=== PATIENT | male | born 1945 | race Caucasian/White ===

== ENCOUNTER 2019-12-15 12:49 | Emergency (ER) | payer MEDICARE ==
--- OUTSIDE RECORDS SUMMARY | 2019-12-15 13:41 | XMS REPORT | Summary of Care ---
:1945 Author Organization [facility] Address [address] [place] [address] Care Team Providers Name Role Phone Wood Connor MD Primary Care Provider Reason for Referral Pain Medicine (Routine) Status Reason Specialty Diagnoses / Referred By Referred To Procedures Contact Contact Open Pain Medicine Diagnoses Sacroiliac joint dysfunction of both sides Miguel Woodard, RO[employer] [address] [place] [address] Email: [email or web address] Scheduling Instructions Get Authorization for orders: Yes No Make Appointment for procedure: Yes No Reason for Visit Reason Comments Back Pain Encounter Details Date Type Department Care Team Description 11/26/2019 Office Visit [facility] Miguel Woodard Sacroiliac joint Pain Medicine at [facility] [employer] dysfunction of both and [facility] [address] sides (Primary Dx) [address] [facility] [id number] Allergies No Known Allergiesdocumented as of this encounter (statuses as of 11/26/2019) Medications Medication Sig Dispensed Refills Start Date End Date Status metformin 0 06/05/2014 Active (GLUCOPHAGE) 500 MG tablet aspirin EC 81 MG EC Take 81 mg 0 Active tablet by mouth daily. rosuvastatin TAKE ONE 1 07/18/2017 Active (CRESTOR) 5 MG TABLET BY tablet MOUTH EVERY EVENING lisinopril 0 11/18/2017 Active (PRINIVIL,ZESTRIL) 5 MG tablet cyclobenzaprine Take 1 30 tablet 2 09/18/2018 Active (FLEXERIL) 10 MG tablet by tablet mouth daily as needed for Muscle spasms Meloxicam 15 MG Oral Take 1 30 tablet 1 11/26/2019 Active Tablet (MOBIC) tablet by mouth daily meloxicam (MOBIC) 15 Take 15 mg 3 09/23/2018 Discontinued MG tablet by mouth 0 (Reorder) daily documented as of this encounter (statuses as of 11/26/2019) Active Problems Problem Noted Date Facet arthropathy, lumbosacral 10/18/2014 Lumbar radiculopathy 02/17/2013 Overview: Work related injury SI (sacroiliac) joint dysfunction 02/17/2013 Overview: Work related injury documented as of this encounter (statuses as of 11/26/2019) Resolved Problems Problem Noted Date Resolved Date Encounter for long-term (current) use of opioid 12/20/2014 05/30/2017 documented as of this encounter (statuses as of 11/26/2019) Social History Tobacco Use Types Packs/Day Years Used Date Never Smoker Smokeless Tobacco: Never Used Alcohol Use Drinks/Week oz/Week Comments No Sex Assigned at Date Recorded Not on file Job Start Date Occupation Industry Not on file Not on file Not on file Travel History Travel Start Travel End No recent travel history available. documented as of this encounter Last Filed Vital Signs Vital Sign Reading Time Taken Comments Blood Pressure 124/89 11/26/2019 8:04 AM EST Pulse 70 11/26/2019 8:04 AM EST Temperature - - Respiratory Rate - - Oxygen Saturation - - Inhaled Oxygen Concentration - - Weight 108.9 kg (240 lb) 11/26/2019 8:04 AM EST Height 170.2 cm (5' 7") 11/26/2019 8:04 AM EST Body Mass Index 37.59 11/26/2019 8:04 AM EST documented in this encounter Progress Notes Miguel Woodard NP - 11/26/2019 8:00 AM EST Subjective: Patient ID: Alberto Parkinson is a 74 y.o. male. The patient is a 74 year old male with chronic back pain due to SI joint dysfunction, lumbar radiculopathy, spinal stenosis with intermittent neurogenic claudication He comes for follow-up increase low back pain for past month. He underwent RFA of B/L SI joints on 05/2019 with 5 months of excellent relief. Back Pain This is a chronic problem. The current episode started more than 1 year ago. The problem occurs daily. The problem has been gradually worsening since onset. The pain is present in the sacro-iliac and lumbar spine. The quality of the pain is described as aching. The pain does not radiate. The pain is at a severity of 7/10. The pain is moderate. The pain is the same all the time. The symptoms are aggravated by sitting and standing. Pertinent negatives include no bladder incontinence, bowel incontinence, chest pain, fever, numbness, tingling or weakness. Risk factors include obesity. He has tried NSAIDs and muscle relaxant (rfa ) for the symptoms. The treatment provided moderate relief. Alberto has a past medical history of Diabetes mellitus, Hypertension, Low back pain, Obesity, Sacroiliac dysfunction, and Work related injury. Alberto has Lumbar radiculopathy; SI (sacroiliac) joint dysfunction; and Facet arthropathy, lumbosacralon their problem list. Alberto has no past surgical history on file. His family history includes Lupus in his mother; Mult sclerosis in his brother. Alberto has a current medication list which includes the following prescription(s) : aspirin ec, cyclobenzaprine, lisinopril, meloxicam, metformin, and rosuvastatin. Current Outpatient Medications on File Prior to Visit Medication Sig Dispense Refill aspirin EC 81 MG EC tablet Take 81 mg by mouth daily. cyclobenzaprine (FLEXERIL) 10 MG tablet Take 1 tablet by mouth daily as needed for Muscle spasms 30 tablet 2 lisinopril (PRINIVIL,ZESTRIL) 5 MG tablet metformin (GLUCOPHAGE) 500 MG tablet rosuvastatin (CRESTOR) 5 MG tablet TAKE ONE TABLET BY MOUTH EVERY EVENING 1 [DISCONTINUED] meloxicam (MOBIC) 15 MG tablet Take 15 mg by mouth daily 3 No current facility-administered medications on file prior to visit. Alberto has No Known Allergies. Review of Systems Constitutional: Negative for chills and fever. Respiratory: Negative for chest tightness and shortness of breath. Cardiovascular: Negative for chest pain and palpitations. Gastrointestinal: Negative for bowel incontinence. Genitourinary: Negative for bladder incontinence. Musculoskeletal: Positive for back pain. Neurological: Negative for tingling, weakness and numbness. Psychiatric/Behavioral: Negative for sleep disturbance. Objective: Visit Vitals BP 124/89 Pulse 70 Ht 1.702 m (5' 7") Wt 108.9 kg (240 lb) BMI 37.59 kg/m Physical Exam Vitals signs and nursing note reviewed. Constitutional: Appearance: He is well-developed. HENT: Head: Normocephalic and atraumatic. Neck: Musculoskeletal: Normal range of motion. Pulmonary: Effort: Pulmonary effort is normal. Musculoskeletal: General: Tenderness present. Lumbar back: He exhibits decreased range of motion, tenderness and pain. Comments: (-) lumbar facet loading bilateral (+) melani's bilateral (-) SLR bilateral Neurological: Mental Status: He is alert and oriented to person, place, and time. Psychiatric: Behavior: Behavior normal. Assessment: 74 year old male with chronic back pain due to SI joint dysfunction, lumbar radiculopathy, spinal stenosis with intermittent neurogenic claudication. Plan: 1.Bilateral SI joint dysfunction -Will seek authorization for bilateral SI joint RFA 2.Continue current medications as scheduled 3.RTC for SI RFA Dr. Swain was available in the suite. documented in this encounter Plan of Treatment Name Type Priority Associated Diagnoses Order Schedule Orders Outpatient Referral Routine Sacroiliac joint dysfunction Ordered: of both sides Health Maintenance Due Date Last Done Comments Hepatitis C Screening (B. 1945 [id number]) MMR Vaccines (1 of 1 - Standard 1946 series) Varicella Vaccines (1 of 2 - 1946 2-dose childhood series) DTaP,Tdap,and Td Vaccines (1 - 1954 Tdap) Colon Cancer Screening 10 yrs 1997 Zoster Vaccines (1 of 2) 1997 Pneumococcal Vaccine: 65+ Years (1 2012 of 2 - PCV13) Influenza Vaccine 08/18/2019 HIB Vaccines Aged Out No longer eligible based on patient's age to complete this topic Hepatitis A Vaccines Aged Out No longer eligible based on patient's age to complete this topic Hepatitis B Vaccines Aged Out No longer eligible based on patient's age to complete this topic IPV Vaccines Aged Out No longer eligible based on patient's age to complete this topic Pneumococcal Vaccine: Pediatrics Aged Out No longer eligible based on (0 to 5 Years) and At-Risk patient's age to complete this Patients (6 to 64 Years) topic documented as of this encounter Results Not on filedocumented in this encounter Visit Diagnoses Diagnosis Sacroiliac joint dysfunction of both sides - Primary Disorders of sacrum documented in this encounter
--- OUTSIDE RECORDS SUMMARY | 2019-12-15 13:41 | XMS REPORT | Continuity of Care Document ---
:1945 External Reference #:[id number] Author Name India Drew M.D. Address [address] [address] Care Team Providers Name Role Phone Wood Connor MD - Family Care Team Information Medicaid Eligibility Specialist Medicine Problems Active Problems Provider Date Primary localized osteoarthrosis of multiple Onset: 11/09/2003 sites Arthralgia of the ankle and/or foot Onset: 11/09/2003 Type 2 diabetes mellitus India Drew M.D. Onset: 11/03/2019 Prostatocystitis India Drew M.D. Onset: 11/03/2019 Kidney stone India Drew M.D. Onset: 07/08/2017 Social History Type Date Description Comments Sex Unknown Tobacco Use Start: Unknown Never Smoked Cigarettes ETOH Use Rarely consumes alcohol ETOH Use Occasionally consumes alcohol Tobacco Use Start: Unknown Patient has never smoked Recreational Drug Use Denies Drug Use Smoking Status Reviewed: 10/14/19 Patient has never smoked Allergies, Adverse Reactions, Alerts Description No Known Drug Allergies Medications Active Medications SIG Qnty Indications Ordering Provider Date Lisinopril 1 tab QDay Unknown 5mg Tablets Metformin HCL One tab bid Unknown 500mg Tablets Crestor 1 by mouth 90tabs Unknown 5mg Tablets every day Meloxicam 1 by mouth 30tabs Obdulia Noyola MD 15mg Tablets every day c food History Medications Cephalexin 1 by mouth twice 14caps India Drew, 09/16/2019 - 500mg a day M.[place] 11/03/2019 Capsules Medications Administered in Office Medication SIG Qnty Indications Ordering Provider Date Depomedrol 40mg/1cc Lucinda Sandy, [facility] 07/09/2019 (methylprednisolone acetate) Injection Depomedrol 40mg/1cc Lucinda Sandy, [facility] 04/08/2019 (methylprednisolone acetate) Injection Depomedrol 40mg/1cc Lucinda Sandy, [facility] 10/07/2017 (methylprednisolone acetate) Injection Depomedrol 40mg/1cc Lucinda Sandy, [facility] 12/28/2014 (methylprednisolone acetate) Injection Depo-Medrol 20mg Lucinda Sandy, [facility] 02/23/2014 Injection Immunizations Description No Information Available Vital Signs Date Vital Result Comment 11/03/2019 9:45am BP Systolic 122 mmHg BP Diastolic 76 mmHg Body Temperature 98.8 F Heart Rate 80 /min Respiratory Rate 19 /min Height 67 inches 5'7" Weight 272.38 lb Pain Level 0 BMI (Body Mass Index) 42.7 kg/m2 BSA (Body Surface Area) 2.31 m2 [place] body weight in kilograms 67 kg O2 % BldC Oximetry 93 % 09/16/2019 9:24am BP Systolic 121 mmHg BP Diastolic 83 mmHg Body Temperature 98.6 F Heart Rate 85 /min Respiratory Rate 16 /min Height 67 inches 5'7" Weight 251.00 lb Pain Level 4 discomfort in the groin and pinching in uretha BMI (Body Mass Index) 39.3 kg/m2 BSA (Body Surface Area) 2.23 m2 [place] body weight in kilograms 67 kg O2 % BldC Oximetry 95 % Results Test Acquired Date Facility Test Result H/L Range Note Urine Dipstick 09/16/2019 [facility] Ua Color yellow Yellow Ua Clarity clear Clear Ua Leuko neg Negative Ua Nitrite neg Negative Ua Urobilinogen 0.2 0.2 - 1.0 E.U./dL Ua Protein neg Negative Ua PH 5.5 Low 6.5-7.5 Ua Blood neg Negative Ua Specific Hunt 1.015 1.010-1.030 Ua Ketones neg Negative Ua Bilirubin neg Negative Ua Glucose neg Negative Procedures Date Code Description Status 07/09/2019 28019 Asp./Injection major joint Completed Medical Devices Description No Information Available Encounters Type Date Location Provider Dx Diagnosis Office Visit 09/16/2019 9:30a Urology Jean Paul Archer, N20.0 Calculus of kidney PA N39.0 Urinary tract infection, site not specified Assessments Date Code Description Provider 11/03/2019 N20.0 Calculus of kidney India Drew M.D. 11/03/2019 N41.3 Prostatocystitis India Drew M.D. 11/03/2019 E11.9 Type 2 diabetes mellitus without India Drew M.D. complications 09/16/2019 N20.0 Calculus of kidney Jean Paul Archer PA 09/16/2019 N39.0 Urinary tract infection, site not Jean Paul Archer PA specified 07/09/2019 M17.12 Unilateral [facility] oste[facility], [facility] 07/09/2019 M25.562 [facility] left [facility] Plan of Treatment No Information Available Functional Status Description No Information Available Mental Status Description No Information Available Referrals Description No Information Available
[2019-12-15 13:51] VITALS: BP 128/80
[2019-12-15 14:08] LABS: Influenza A Molecular Negative (Negative); Influenza B Molecular Negative (Negative)
--- NOTE | 2019-12-15 14:15 | UC ---
Respiratory Complaint HPI - HPI Summary HPI Summary: cough x 2 days cough is dry , harsh worse with deep breathing, better with rest fever, chills, body aches, sore throat, nasal congestion no sob - History of Current Complaint Chief Complaint: UCRespiratory Stated Complaint: BRADLEY,FEVER,COUGH,DIARHEA Time Seen by Provider: 12/15/19 13:46 Hx Obtained From: Patient Onset/Duration: Gradual Onset, Lasting Days - 2, Still Present Timing: Constant Severity Initially: Moderate Severity Currently: Moderate Pain Intensity: 0 Character: Cough: Nonproductive Aggravating Factors: Exertion, Deep Breaths Alleviating Factors: Nothing Associated Signs And Symptoms: Positive: Fever, Chills, URI, Nasal Congestion. Negative: Dyspnea, Wheezing, Hemoptysis, Dizziness, Calf Pain, Calf Swelling - Allergies/Home Medications Allergies/Adverse Reactions: Allergies Allergy/AdvReac Type Severity Reaction Status Date / Time No Known Allergies Allergy Verified 12/15/19 13:47 PMH/Surg Hx/FS Hx/Imm Hx - Additional Past Medical History Additional PMH: Dyslipidemia, Gout, L4-S1 Herniated Discs, Shingles ~2000s Endocrine History: Diabetes Cardiovascular History: Hypertension - Surgical History Surgical History: Yes Surgery Procedure, Year, and Place: Breast Reduction; Left Third Finger Crush Injury - Family History Known Family History: Positive: Hypertension - Social History Alcohol Use: Rare Substance Use Type: None Smoking Status (MU): Never Smoked Tobacco - Immunization History Most Recent Tetanus Shot: 01/31/13 Review of Systems All Other Systems Reviewed And Are Negative: Yes Constitutional: Positive: Fever, Chills, Fatigue Skin: Positive: Negative ENT: Positive: Sore Throat, Nasal Discharge Respiratory: Positive: Cough Is Patient Immunocompromised?: No Physical Exam Triage Information Reviewed: Yes Appearance: Well-Appearing, No Pain Distress, Obese Vital Signs: Initial Vital Signs Temp 99.1 F 12/15/19 13:45 Pulse 94 12/15/19 13:45 Resp 20 12/15/19 13:45 BP 128/80 12/15/19 13:45 Pulse Ox 96 12/15/19 13:45 Vital Signs Reviewed: Yes Eye Exam: Normal Eyes: Positive: Conjunctiva Clear ENT: Positive: Normal ENT inspection, Hearing grossly normal, Pharynx normal, Nasal drainage Neck: Positive: Supple, Nontender, No Lymphadenopathy Respiratory: Positive: Chest non-tender, Lungs clear, Normal breath sounds Cardiovascular: Positive: RRR, No Murmur, Pulses Normal Abdominal Exam: Normal Skin Exam: Normal Respiratory Course/Dx - Differential Dx/Diagnosis Provider Diagnosis: Viral illness Discharge ED - Sign-Out/Discharge Documenting (check all that apply): Patient Departure All imaging exams completed and their final reports reviewed: No Studies - Discharge Plan Condition: Stable Disposition: HOME Prescriptions: Oseltamivir Phosphate [Tamiflu] 75 mg PO BID #10 capsule Patient Education Materials: Influenza (ED) Referrals: Wood Connor MD [Primary Care Provider] - 7 Days - Billing Disposition and Condition Condition: STABLE Disposition: Home
== END 2019-12-15 14:19 | disposition home or self-care (01) ==
LOC: UCCORT 12:49
DX: B34.9 Viral infection, unspecified (principal); J02.9 Acute pharyngitis, unspecified; R09.89 Other specified symptoms and signs involving the circulatory and respiratory systems; R05 Cough; R53.83 Other fatigue; I10 Essential (primary) hypertension; E11.9 Type 2 diabetes mellitus without complications; M10.9 Gout, unspecified
CPT/HCPCS: 99202; G0463